=== PATIENT | female | born 1945 | race Caucasian/White ===

== ENCOUNTER 2017-01-01 08:49 | Emergency (ER) | payer MEDICARE ==
[~2017-01-01] VITALS: Ht 157.5 cm; Wt 77.2 kg
[~2017-01-01 08:49] MED LIST: ADULT ASPIRIN E81 MG PO; ALPRAZOLAM0.5 M2 PO; AZITHROMYCIN500 MG OR; BACTRIM DS1 TAB PO; CALCIUM600 MG OR; CELEBREX100 MG OR; CIPROFLOXACIN500 M1 PO; COLCHICINE0.6 MG OR; DARVOCET-N 100100 MG OR; DOCUSATE CAL240 MG; DOCUSATE CAL240 MG PO; DOXYCYC MONO100 M2 PO; EFFEXOR XR150 MG OR; EFFEXOR XR75 MG OR; ENABLEX15 MG OR; FENOFIBRATE200 MG PO; FENTANYL50 MCG/HR TD; FIORICET PO; FLEXERIL OR; FLEXERIL PO; FLEXERIL5 M1 PO; FLEXERIL5 MG PO; FLORASTOR250 M1 PO; FOLIC ACI1 OR; FOLIC ACI1 PO; FOLIC ACID1 MG PO; GABAPENTIN100 MG PO; GABAPENTIN300 M2 PO; GABAPENTIN400 MG PO; HYDROCO/APAP1 T13; HYDROXYCHLOR200 MG PO; KEFLEX500 MG PO; LAMICTAL100 M1 PO; LAMICTAL150 MG PO; LAMICTAL200 M1 PO; LORTAB 1010 MG PO; LORTAB 7.5-3251 TAB PO; LOSARTAN POT50 MG PO; MACRODANTIN100 MG PO; MEDDOSEPAK OR; METHOTREXATE2.5 MG OR; METHOTREXATE2.5 MG PO; METOPROL TAR25 MG PO; MINOCYCLINE100 MG PO; NITROFURANTN100 MG PO; NITROFURANTOIN100 MG PO; OMEPRAZOLE20 MG PO; OXYBUTYNIN5 M1 PO; OXYBUTYNIN5 MG PO; PERCOCET 5/325M1 TAB OR; PHENERGAN12.5 MG/TA PO; PLAQUENIL200 MG OR; PREDNISODT10 OR; PRISTIQ100 MG PO; PROZAC20 M1 PO; PROZAC20 MG PO; RISPERIDONE0.5 MG PO; RISPERIDONE2 MG PO; ROCEPHIN 1 GM1 GM IM; ROCEPHIN 1 GM1 GM IV; ROSUVASTATIN CA10 MG PO; ROZEREM8 MG OR; SEROQUEL25 MG PO; SILVADENE1 % TOP; TENIVAC1 ML IM; TOPROL XL25 M1 OR; TRAZODONE50 MG PO; TRICOR145 MG PO; TYLENOL 500MG TAB PO; ULTRAM ER200 MG OR; ULTRAM50 M1 PO; VANCOMYCIN HCL1 GM IV; VESICARE10 MG OR; VITAMIN D2000 UNIT PO; ZANAFLEX4 MG PO; ZOFRAN4 MG/TAB PO; allo OR; allo PO
[2017-01-01] MEDS ORDERED: METOPROL TAR25 M1 PO (09:03)
[2017-01-01] MEDS ORDERED: HIGH POTENCY I134 MG (09:04)
[2017-01-01 09:48] VITALS: BP 149/78
== END 2017-01-01 09:55 | disposition home or self-care (01) ==
LOC: ED 08:49
DX: S63.642A Sprain of metacarpophalangeal joint of left thumb, initial encounter (principal); I12.9 Hypertensive chronic kidney disease with stage 1 through stage 4 chronic kidney disease, or unspecified chronic kidney disease; N18.3 Chronic kidney disease, stage 3 (moderate); F17.210 Nicotine dependence, cigarettes, uncomplicated; F31.9 Bipolar disorder, unspecified; I25.2 Old myocardial infarction; W01.0XXA Fall on same level from slipping, tripping and stumbling without subsequent striking against object, initial encounter; Y92.009 Unspecified place in unspecified non-institutional (private) residence as the place of occurrence of the external cause

== ENCOUNTER 2018-02-17 03:03 | Emergency (ER) | payer MEDICARE ==
[~2018-02-17] VITALS: Ht 157.5 cm; Wt 72.7 kg
[~2018-02-17 03:03] MED LIST changes: +CIPROFLOXACN500 MG PO; +FLUOXETINE40 MG PO; +HIGH POTENCY I134 MG; +LASIX 20 MG TAB20 MG PO; +LATUDA20 MG PO; +METO25TAB PO; +METOPROL TAR25 M1 PO; +METRONIDAZOL500 MG PO; +MYRBETRIQ25 MG PO; +ROSUVASTATIN CA20 MG
[2018-02-17] MEDS ORDERED: MEDDOSEPAK PO (03:19)
[2018-02-17] MEDS ORDERED: PERCOCET 5/325M1 TAB PO (04:32)
[2018-02-17 05:04] VITALS: BP 140/70
== END 2018-02-17 05:30 | disposition home or self-care (01) ==
LOC: ED 03:03
DX: S30.0XXA Contusion of lower back and pelvis, initial encounter (principal); F31.9 Bipolar disorder, unspecified; I11.9 Hypertensive heart disease without heart failure; F17.210 Nicotine dependence, cigarettes, uncomplicated; W18.30XA Fall on same level, unspecified, initial encounter; Y93.89 Activity, other specified; Y92.009 Unspecified place in unspecified non-institutional (private) residence as the place of occurrence of the external cause

== ENCOUNTER 2018-07-17 07:11 | Emergency (ER) | payer MEDICARE ==
[~2018-07-17] VITALS: Ht 157.5 cm; Wt 62.0 kg
[~2018-07-17 07:11] MED LIST changes: +MEDDOSEPAK PO; +PERCOCET 5/325M1 TAB PO; +TORADOL PO
[2018-07-17 07:42] LABS: HEMATOCRIT 39.6 % (37.0-47.0); IMMATURE GRANULOCYTES 0.5 % (0.0-5.0); MEAN CELL VOLUME 94.1 fL CALC (80.0-100.0); MEAN CORPUSCULAR HGB 30.9 pG CALC (26.0-32.0); MEAN CORPUSCULAR HGB CONC 32.8 g/L CALC (32.0-36.0); NEUT# 4.09 thou/uL (2.00-7.15); RED BLOOD COUNT 4.21 mill/uL (4.20-5.60); RED CELL DISTRI WIDTH 13.6 % (11.5-15.5)
[2018-07-17] MEDS ORDERED: MINOCYCLINE100 MG PO (07:53)
[2018-07-17] MEDS ORDERED: VESICARE5 MG PO (07:53)
[2018-07-17] MEDS ORDERED: OSCAL 500/1 TAB PO (07:54)
[2018-07-17] MEDS ORDERED: DICLOFENAC50 MG PO (08:58)
[2018-07-17] MEDS ORDERED: FLEXERIL PO (08:58)
[2018-07-17 09:15] VITALS: BP 148/69
== END 2018-07-17 09:15 | disposition home or self-care (01) ==
LOC: ED 07:11
PROVIDERS: Emergency Medicine
DX: S16.1XXA Strain of muscle, fascia and tendon at neck level, initial encounter (principal); R51 Headache; M54.2 Cervicalgia; M25.512 Pain in left shoulder; F17.200 Nicotine dependence, unspecified, uncomplicated
CPT/HCPCS: J3370

== ENCOUNTER 2020-12-08 19:47 | Emergency (ER) | payer MEDICARE ==
[~2020-12-08] VITALS: Ht 157.5 cm; Wt 70.0 kg
[~2020-12-08 19:47] MED LIST changes: +DICLOFENAC50 MG PO; +OSCAL 500/1 TAB PO; +VESICARE5 MG PO
[2020-12-08] MEDS ORDERED: NAPROXEN500 MG PO (20:24)
[2020-12-08 20:56] VITALS: BP 158/78
== END 2020-12-08 20:59 | disposition home or self-care (01) ==
LOC: ED 19:47
DX: S80.11XA Contusion of right lower leg, initial encounter (principal); I10 Essential (primary) hypertension; F31.9 Bipolar disorder, unspecified; F17.200 Nicotine dependence, unspecified, uncomplicated; W18.39XA Other fall on same level, initial encounter; Y93.H2 Activity, gardening and landscaping; Y92.007 Garden or yard of unspecified non-institutional (private) residence as the place of occurrence of the external cause

== ENCOUNTER 2021-07-08 16:48 | Emergency (ER) | payer MEDICARE ==
[~2021-07-08] VITALS: Ht 157.5 cm; Wt 72.7 kg
[~2021-07-08 16:48] MED LIST changes: +NAPROXEN500 MG PO
[2021-07-08 17:27] LABS: HEMATOCRIT 38.1 % (37.0-47.0); HEMOGLOBIN 12.3 g/dl (12.0-16.0); IMMATURE GRANULOCYTES 0.2 % (0.0-5.0); MEAN CELL VOLUME 92.7 fL CALC (80.0-100.0); MEAN CORPUSCULAR HGB 29.9 pG CALC (26.0-32.0); MEAN CORPUSCULAR HGB CONC 32.3 g/dL CAL (32.0-36.0); NEUT# 4.2 thou/uL (2.00-7.15); RED BLOOD COUNT 4.11 mill/uL (4.20-5.60); RED CELL DISTRI WIDTH 12.5 % (11.5-15.5)
[2021-07-08 17:43] LABS: ALBUMIN 4.1 g/dL (3.2-5.0); BILIRUBIN, TOTAL 0.4 mg/dL (0.0-1.4); CREATININE 1.6 mg/dL (0.5-1.0); POTASSIUM 4.8 mmol/l (3.5-5.1); TOTAL PROTEIN 7.5 g/dL (6.3-8.2)
[2021-07-08] MEDS ORDERED: NORVASC5 M1 PO (19:49)
[2021-07-08] MEDS ORDERED: LEVAQUIN750 M1 PO (20:30)
[2021-07-08 20:40] VITALS: BP 140/64
== END 2021-07-08 20:40 | disposition home or self-care (01) ==
LOC: ED 16:48
PROVIDERS: Family Medicine
DX: J18.9 Pneumonia, unspecified organism (principal); J44.0 Chronic obstructive pulmonary disease with (acute) lower respiratory infection; I10 Essential (primary) hypertension; F31.9 Bipolar disorder, unspecified; I25.2 Old myocardial infarction; F17.210 Nicotine dependence, cigarettes, uncomplicated

== ENCOUNTER 2022-06-19 05:44 | Emergency (ER) | payer MEDICARE ==
[~2022-06-19] VITALS: Ht 157.5 cm; Wt 70.0 kg
[~2022-06-19 05:44] MED LIST changes: +LEVAQUIN750 M1 PO; -MYRBETRIQ25 MG PO; +MYRBETRIQ50 MG PO; +NORVASC5 M1 PO
[2022-06-19] MEDS ORDERED: CLINDAMYCIN HC150 MG PO (06:24)
[2022-06-19] MEDS ORDERED: OXYBUTYNIN CHLOR5 M1 PO (06:25)
[2022-06-19] MEDS ORDERED: CALTRAT1 PO (06:26)
[2022-06-19] MEDS ORDERED: LATUDA20 MG PO (06:27)
[2022-06-19] MEDS ORDERED: NITROFURANTN100 MG PO (06:28)
[2022-06-19] MEDS ORDERED: DOXYCYCLINE50 M1 (06:29)
[2022-06-19] MEDS ORDERED: PREDNISONE1 MG PO (06:30)
[2022-06-19] MEDS ORDERED: [UNRECOGNIZED DRUG - CODE] XX (06:31)
[2022-06-19] MEDS ORDERED: VISTARIL 50MG C50 M1 PO ×2 (06:32→07:21)
[2022-06-19] MEDS ORDERED: PREDNISONE50 MG PO (07:21)
[2022-06-19] MEDS ORDERED: ALL DAY10 MG PO (07:21)
[2022-06-19 07:30] VITALS: BP 127/58
== END 2022-06-19 07:46 | disposition home or self-care (01) ==
LOC: ED 05:44
DX: L10.0 Pemphigus vulgaris (principal); I11.0 Hypertensive heart disease with heart failure; I50.9 Heart failure, unspecified; J44.9 Chronic obstructive pulmonary disease, unspecified; E78.00 Pure hypercholesterolemia, unspecified; F31.9 Bipolar disorder, unspecified; I25.2 Old myocardial infarction; F17.200 Nicotine dependence, unspecified, uncomplicated; Z99.81 Dependence on supplemental oxygen

== ENCOUNTER 2022-06-28 07:53 | Inpatient (IN) | payer MEDICARE ==
[~2022-06-28] VITALS: Ht 157.5 cm; Wt 66.0 kg
[2022-06-28] VITALS (9 sets, daily range): BP systolic 145–179; BP diastolic 60–87
[~2022-06-28 07:53] MED LIST changes: +ALL DAY10 MG PO; +CALTRAT1 PO; +CLINDAMYCIN HC150 MG PO; +DOXYCYCLINE50 M1; +OXYBUTYNIN CHLOR5 M1 PO; +PREDNISONE1 MG PO; +PREDNISONE50 MG PO; +VISTARIL 50MG C50 M1 PO; +[UNRECOGNIZED DRUG - CODE] XX
--- NOTE | 2022-06-28 08:02 | NUR ---
PATIENT BROUGHT IN VIA EMS IN [facility]. PROVIDER MET BEDSIDE.
[2022-06-28 08:23] LABS: IMMATURE GRANULOCYTES 1.6 % (0.0-5.0); MEAN CORPUSCULAR HGB 27.9 pG CALC (26.0-32.0); NEUT# 14.68 thou/uL (2.00-7.15); RED BLOOD COUNT 3.15 mill/uL (4.20-5.60); RED CELL DISTRI WIDTH 14.9 % (11.5-15.5)
[2022-06-28] MEDS ORDERED: NITROFURANTN100 MG PO (08:27)
[2022-06-28 08:29] LABS: HEMATOCRIT 29.3 % (37.0-47.0); HEMOGLOBIN 8.8 g/dl (12.0-16.0)
[2022-06-28 08:43] LABS: ALBUMIN 3.3 g/dL (3.2-5.0); POTASSIUM 4.8 mmol/l (3.5-5.1)
[2022-06-28 08:48] LABS: BILIRUBIN, TOTAL 0.5 mg/dL (0.0-1.4)
--- NOTE | 2022-06-28 08:56 | NUR ---
PATIENT RESTING QUIETLY. NO NEW CONCERNS. RESPIRATORY EFFORT IMPROVED AFTER NEBULIZER TX.
[2022-06-28 09:56] LABS: URINE BILIRUBIN - DIPSTICK NEGATIVE (NEGATIVE); URINE BLOOD DIPSTICK NEGATIVE (NEGATIVE); URINE COLOR YELLOW; URINE GLUCOSE - DIPSTICK NEGATIVE (NEGATIVE); URINE KETONE NEGATIVE (NEGATIVE); URINE LEUK ESTERASE NEGATIVE (NEGATIVE); URINE PROTEIN - DIPSTICK TRACE mg/dL (NEG-TRACE); URINE SPECIFIC GRAVITY 1.015; URINE UROBILINOGEN - DIPSTICK 0.2 E.U./dL (0.2)
[2022-06-28 09:57] LABS: URINE NITRITE - DIPSTICK NEGATIVE (Negative)
--- NOTE | 2022-06-28 10:23 | NUR ---
BEDSIDE REPORT GIVEN TO CATINA FRIAS ON MED SURG UNIT
--- NOTE | 2022-06-28 12:02 | NUR ---
CALLED IN A PHYSICIAN CONSULT FOR DR SANCHES. I SPOKE WITH HIS ANSWERING SERVICE (JUSTIN) AT 1202 HRS.
--- NOTE | 2022-06-28 15:37 | NUR ---
1015 PT ARRIVED TO FLOOR FROM ER VIA STRETCHER WITH ALL PERSONAL BELONGINGS. PT ALERT AND ORIENTED X4. PT VERY SOB WITH MINIMAL EXERTION. OXYGEN THERAPY @ 2L NC. PT TRANSFERRED TO BED X2 ASST. REPORT RECEIVED FROM ALTAGRACIA MORE AT BEDSIDE. ADMISSION ASSESSMENT COMPLETED. DRESSINGS NOTED TO BLE, DRESSINGS REMOVED TO ASSESS SKIN. WOUNDS TO BLE CLEANED WITH STERILE WATER, DRIED WITH STERILE 4X4, NON ADHESIVE KEFLEX APPLIED AND WRAPPED WITH KERLIX. PT TOLERATED WELL. ALL PERSONAL ITEMS WITHIN REACH. SAFETY PRECAUTIONS ON PLACE.
--- NOTE | 2022-06-28 19:24 | NUR ---
PT RELINQUISHED TO ALTAGRACIA ACEVEDO
--- NOTE | 2022-06-28 19:30 | NUR ---
PT WAS NOTED IN BED FOWLERS. PT REWUESTED TO USE RESTROOM. HELPED PT OUT OF BED, AMBULATED TO RESTROOM WITH CANE AND 1XASSIST. GAIT UNTEASY AND SHAKY. AMBULATED PT BACK INTO BED. ASSESSED PT AND IV SITE. UPON ASSESSMENT PT LUNG SOUNDS RHONCHI IN ALL LOBES O2 SATURATION AT 96%. PT EXHIBITTED FEELING ANXIOUS. IV SITE APPEARS HEALTHY AND INTACT. CALL LIGHT WITHIN REACH.
--- NOTE | 2022-06-28 20:25 | NUR ---
PT BLODD PRESSURE DOCUMENTED 173/70. CALLED DR. CARRASCO IN REGARD TO HYPERTENSION, ANXIETY, AND MED REC. T.O.R.B OF LOSARTAN 50MG PO DAILY. ORDER FAXED TO [facility]. AWAITING ORDER TO ADMINISTER PER EMAR. BEDSIDE COMMODE BROUGHT IN ROOM FOR PT AND EXTENDED TUBING FOR OXYGEN. IV DRESSING CHANGED. SAFETY PRECAUTIONS IN PLACE AND CALL LIGHT WITHIN REACH. WILL FOLLOW UP.
--- NOTE | 2022-06-28 22:15 | NUR ---
PT WAS ADMINISTERED LOSARTAN 50MG AND TRAZADONE 50 MG PER EMAR FOR HYPERTENSION AND ANXIETY. ALL SAFETY MEASURES IN PLACE AND CALL LIGHT WITHIN REACH. WILL CONTINUE TO MONITOR.
[2022-06-29] VITALS (18 sets, daily range): BP systolic 97–196; BP diastolic 39–85
--- NOTE | 2022-06-29 00:07 | NUR ---
PT LAYING IN BED FOWLERS. NASAL CANULA PRESENTS ON PT. NO S/S OF DISTRESS OR DISCOMFORT. SAFETY PRECAUTIONS IN PLACE AND CALL LIGHT WITHIN REACH.
--- NOTE | 2022-06-29 04:10 | NUR ---
PT LAYING HIGH FOWLERS IN BED.PT SLEEPING. LABORED BREATHING WITH NASAL CANULA IN PLACE. NO S/S OF DISTRESS OR PAIN PRESENT AT THIS TIME. SAFETY PRECAUTIONS IN OLACE AND CALL LIGHT WITHIN REACH.
--- NOTE | 2022-06-29 05:02 | NUR ---
PT HAD AUTOMATIC BLOOD PRESSURE READING OF 190/85. RECHECKED PATIENTS BLOOD PRESSURE MANUALLY WITH A READING OF 196/82. AT 0458 I CALLED THE PHYSICIAN ON COMPUTER LAB ASSISTANT, DR. CARRASCO. TOOK ORDER READ BACK OF HYDRALAZINE 10MG IV PUSH Q6HR PRN. ORDER WAS FAXED TO PHARMACY. AWAITING ORDER PER EMAR.
--- NOTE | 2022-06-29 05:24 | NUR ---
PTS WEIGHT ON 06/29 WAS 66 KG STANDING SCALE
--- NOTE | 2022-06-29 05:31 | NUR ---
PATIENT RESTING IN BED- BP-196/82, HR-87, O2 SAT IS 98% WITH O2 VIA NASAL CANNULA AT 2LPM IN PLACE. MEDICATED WITH HYDRALAZINE 10MG IVP VIA LAC IV SITE FOR HTN. SITE IS HEALTHY WITH GOOD BLOOD RETURN. CALL LIGHT IN REACH. WILL CONT TO MONITOR.
--- NOTE | 2022-06-29 06:14 | NUR ---
AT 0557 PT STARTED COMPLAINING OF CHEST PAIN. RN ON SHIFT CURTIS HOOVER WAS NOTIFIED. UPON OBSERVATION OF PT SHE WAS VERY SHAKY, SKIN COLOR A YELLOW, PALE COLOR, AND ANXIOUS WITH GARBLED SPEECH. NASAL CANULI WAS IN PLACE ON PT. I CHECKED PT BLODD PRESSURE MANUALLY WITH A READING OF 162/78, OXYGEN SATURATION OF 95%, AND PULSE OF 99. EKG WAS DONE ON PT REVEALING SINUS TACH RHYTHYM AND LABS WERE DRAWN ON PT. CURTIS HOOVER RN NOTIFIED PHYSICIAN DR. CARRASCO.
[2022-06-29 06:15] LABS: HEMATOCRIT 31.7 % (37.0-47.0); HEMOGLOBIN 9.8 g/dl (12.0-16.0); IMMATURE GRANULOCYTES 1.2 % (0.0-5.0); MEAN CELL VOLUME 90.8 fL CALC (80.0-100.0); MEAN CORPUSCULAR HGB 28.1 pG CALC (26.0-32.0); MEAN CORPUSCULAR HGB CONC 30.9 g/dL CAL (32.0-36.0); NEUT# 23.01 thou/uL (2.00-7.15); RED BLOOD COUNT 3.49 mill/uL (4.20-5.60); RED CELL DISTRI WIDTH 14.7 % (11.5-15.5)
[2022-06-29 06:34] LABS: ALBUMIN 3.6 g/dL (3.2-5.0); BILIRUBIN, TOTAL 0.7 mg/dL (0.0-1.4); CREATININE 2.1 mg/dL (0.5-1.0); MAGNESIUM 1.6 mg/dL (1.6-2.3); POTASSIUM 4.6 mmol/l (3.5-5.1); TOTAL PROTEIN 6.2 g/dL (6.3-8.2)
--- NOTE | 2022-06-29 06:45 | NUR ---
PT NOTED IN BED LAYING FOWLERS. PAIN MEDICATION ADMINISTERED TO PT PER THE EMAR. PT STILL COMPLAINING OF PAIN AT THIS TIME. COMFORT MEASURES IN PLACE FOR PT. SAFETY PRECAUTIONS IN PLACE. CALL LIGHT WITHIN REACH.
--- NOTE | 2022-06-29 08:43 | NUR ---
PT ANXIOUS IN ROOM. STATING " I WANT TO " CALMING CUES GIVEN. PT REMAINS ANXIOUS. LABORED BREATHING. VITAL SIGNS: BP158/69 HR: 95 SPO2: 97 WITH O2 VIA NC @2L RR:25 MD NOTIFIED/AWARE.
--- NOTE | 2022-06-29 09:39 | NUR ---
PRELIMINARY BC SHOWS GRAM (+) COCCI IN 3/3 VIALS. PATIENT RECEIVING VANCOMYCIN 750MG IV Q36H. WILL CONTINUE TO FOLLOW PT.
--- NOTE | 2022-06-29 09:45 | NUR ---
S: DASHA GARDINER is a 76 F who presents with PNEUMONIA AND BACTEREMIA. She has a history of HTN, HYPERLIPIDEMA, HEART DISEASE, AND COPD. All medications in patient's chart were reviewed. O: VS: BP 158/69mmHg, P 101 bpm, RR 22 bpm,T 97.7 F W 66 kg, HT 62inches, Scr= 2.1 mg/dL ,CrCl= 20.9 ml/min A: Preliminary blood cultures shows GRAM POSITIVE COCCI in 2/2 sets. P: Patient is on ceftriaxone 1 gram IV Q24H AND azithromycin 500mg IV Q24H. Vancomycin ordered for pharmacy to dose. Start Vancomycin 750mg IV Q36H. Due to timing of vancomycin dosing, Vancomycin trough will drawn before the 3rd dose on 07/02/22 @ 0830. Vancomycin goal trough is between 15-20 mcg/ml. Pharmacy will follow and or advise on antibiotics use as needed.
--- NOTE | 2022-06-29 20:02 | NUR ---
AT 1945 ER CALLED NOTING PT WAS TACHY. UPON REEVIEW OF TELEMENTRY MONITOR AND PULSE OX PLACED ON PT THEY WERE TACHY BETWEEN 110 AND 130. METOPROLOL SUCCINATE 12.5 MG DAILY WAS ADMINISTERED. WILL FOLLOW UP WITH PT AND CONTINUE MONITORING HR.
--- NOTE | 2022-06-29 20:45 | NUR ---
PT HEART RATE IS STILL ELEVATED BETWEEN 110-120. PT RESPIRATORY RATE IS 36 AND O2 SAT 95%. PT STILL EXHIBITING SIGNS OF HIGH ANXIETY. PT SHOWING SIGNS OF CONFUSION. SKIN COMPLEXION PALE GRAYISH YELLOW. TRAZODONE HCL 50 MG WERE ADMINISTERED TO PT PER EMAR TO AID IN ANXIETY. CURTIS HOOVER RN NOTIFIED ON STATUS OF PT. SAFETY PRECAUTIONS IN PLACE AND CALL LIGHT WITHIN REACH.
--- NOTE | 2022-06-29 21:15 | NUR ---
PT HR SUSTAINING IN THE 120'S. RESPIRATORY RATE ELEVATED, O2 SATURATION AT 95%. PT STILL EXHIBITING SIGNS OF ANXIETY. LORAZEPAM 1MG ADMINISTERED TO PT FOR ANXIETY PER EMAR. CONTINUING TO MONITOR PT. CALL LIGHT WITHIN REACH AND SAFETY PRECAUTIONS IN PLACE.
--- NOTE | 2022-06-29 21:55 | NUR ---
PATIENT SITTING UP IN BED WITH O2 VIA NASAL CANNULA IN PLACE AT 2LPM WITH O2 SAT OF 95%. RESPS ARE RAPID AND SHALLOW. TELE MONITOR CONT TO BE SUSTAINED ST. CALL PLACED TO DR. MUIR WITH UPDATE ON PATIENT CONDITION. NEW ORDERS TO TRANSFER TO ICU ON BIPAP. BRITTANI NICHOLSG SUP NOTIFIEDAND AWAITING ROOM ASSIGNMENT. SPOKE WITH CRISTOBAL LEDESMA) IN [place] WITH UPDATE. WILL CONT TO MONITOR.
--- NOTE | 2022-06-29 23:09 | NUR ---
Patient refused Bipap, Dr. Hannah and RN aware. Tolerating NC well at this time.
--- NOTE | 2022-06-29 23:22 | NUR ---
Recieved pt from [facility] floor, pt refused BIB-pap provider aware, tylenol given for temp of 99.8f
[2022-06-30] VITALS (89 sets, daily range): BP systolic 99–196; BP diastolic 55–139
--- NOTE | 2022-06-30 01:00 | NUR ---
PATIENT ON AFIB RVR .DR. MUIR MADE AWARE ORDER NOTED.
--- NOTE | 2022-06-30 03:20 | NUR ---
PATIENT RESTING COMFORTABLY AT THIS TIME. DENIES ANY PAIN OR DISCOMFORT
[2022-06-30 06:03] LABS: HEMATOCRIT 31.1 % (37.0-47.0); HEMOGLOBIN 9.3 g/dl (12.0-16.0); IMMATURE GRANULOCYTES 1.1 % (0.0-5.0); MEAN CELL VOLUME 93.1 fL CALC (80.0-100.0); MEAN CORPUSCULAR HGB 27.8 pG CALC (26.0-32.0); MEAN CORPUSCULAR HGB CONC 29.9 g/dL CAL (32.0-36.0); NEUT# 18.16 thou/uL (2.00-7.15); RED BLOOD COUNT 3.34 mill/uL (4.20-5.60); RED CELL DISTRI WIDTH 14.6 % (11.5-15.5)
[2022-06-30 06:16] LABS: ALBUMIN 3.5 g/dL (3.2-5.0); BILIRUBIN, TOTAL 0.6 mg/dL (0.0-1.4); TOTAL PROTEIN 6.4 g/dL (6.3-8.2)
[2022-06-30 06:18] LABS: POTASSIUM 4.8 mmol/l (3.5-5.1)
[2022-06-30 06:45] LABS: ALBUMIN 3.5 g/dL (3.2-5.0); MAGNESIUM 1.5 mg/dL (1.6-2.3); POTASSIUM 4.8 mmol/l (3.5-5.1)
--- NOTE | 2022-06-30 14:15 | NUR ---
PT RESTING QUIETLY ON STRETCHER, CARDIOLOGY HERE FOR FOLLOW UP OF PT. PT STATES LIVES BY HERSELF AT HOME AND USUALLY DRIVES HERSELF AND USES WALKER. STATES IF SHE NEEDS REHAB DOES NOT WANT TO GO TO A REHAB CENTER WANTS HOME HEALTH AT HOME
--- NOTE | 2022-06-30 15:10 | NUR ---
02 2L NC 94%SAT
--- NOTE | 2022-06-30 16:22 | NUR ---
Consult received for retacrit dosing. Retacrit contraindicated at this time due to uncontrolled BP and SBP>140mmHg. Will review 07/01.
--- NOTE | 2022-06-30 16:54 | NUR ---
PT RESTING QUIETLY ON STRETCHER, VITAL SIGNS UP AND DOWN, AT THIS TIME IS IN ST WITH RATE IN MID 90'S.
--- NOTE | 2022-06-30 21:47 | NUR ---
RECIEVED PT FROM ICU. PT TRANSFERED BY BED WEARING 2L NC. PT IS ALERT AND ORIENTATED X3. FACIAL STRUCTURE SYMMETRICAL. UPPER EXTREMITIES STRONG. BREATHING LABORED WITH O2 2L VIA NC. ACTIVE BOWEL SOUNDS, PT REPORTED LAST BM WAS 06/29/22. IV SITES FLUSHED, NO PAIN WHEN FLUSHING. PT DENIES PAIN OR DISCOMFORT. ALL SAFETY PRECAUTIONS IN PLACE AT THIS TIME.
--- NOTE | 2022-06-30 23:49 | NUR ---
2130 transport pt to [facility], pt is hemodinamic stable to be transfer , report given. incoming rn will continue plan of care.
[2022-07-01] VITALS: BP 152/59
--- NOTE | 2022-07-01 00:23 | NUR ---
PT HAS RECIEVED BREATHING TREATMENT AND BREATHING HAS IMPROVED. PT DENIES WANTING LIGHTS OFF. REINFORCED CALL LIGHT. IV SITES FLUSHED. WILL CONTINUE TO MONITOR PT. TELE IN PLACE. ALL SAFETY PRECAUTIONS IN PLACE AT THIS TIME
--- NOTE | 2022-07-01 03:43 | NUR ---
PT AWAKE, REQUESTED WATER. BREATHING IS NON LABORED WITH O2 IN PLACE. PT DENIES PAIN OR DISCOMFORT. ALERT AND ORIENTATED X3. IV SITE PATENT. DENIES ANY FURTHER NEEDS AT THIS TIME. ALL SAFETY PRECAUTIONS IN PLACE AT THIS TIME
[2022-07-01 04:43] VITALS: BP 157/72
[2022-07-01 05:59] LABS: HEMATOCRIT 31.5 % (37.0-47.0); HEMOGLOBIN 9.6 g/dl (12.0-16.0); MEAN CELL VOLUME 92.6 fL CALC (80.0-100.0); MEAN CORPUSCULAR HGB 28.2 pG CALC (26.0-32.0); MEAN CORPUSCULAR HGB CONC 30.5 g/dL CAL (32.0-36.0); RED BLOOD COUNT 3.4 mill/uL (4.20-5.60); RED CELL DISTRI WIDTH 14.2 % (11.5-15.5)
[2022-07-01 06:11] LABS: CREATININE 1.8 mg/dL (0.5-1.0); POTASSIUM 4.7 mmol/l (3.5-5.1)
[2022-07-01 06:17] LABS: MAGNESIUM 1.9 mg/dL (1.6-2.3)
--- NOTE | 2022-07-01 07:00 | NUR ---
RECEIVE REPORT FROM DEMETRI ORTEZ.
[2022-07-01 07:04] VITALS: BP 146/80
--- NOTE | 2022-07-01 10:23 | NUR ---
O2 SAT ON 3L NC IS 98%
[2022-07-01 10:43] VITALS: BP 158/70
--- NOTE | 2022-07-01 12:44 | NUR ---
PT RESTING IN BED. STATES NO PAIN. TELE MONITOR IN PLACE. CONTINOUS MONITORING FALL/SAFTEY PRECAUTION IN PLACE, CALL LIGHT WITHIN REACH.
[2022-07-01 14:47] VITALS: BP 158/67
--- NOTE | 2022-07-01 15:59 | NUR ---
PT RESTING IN BED WITH EYES CLOSED. NO S/S OF DISTRESS NOTED. ALL PERSONAL BELONGINGS WITHIN REACH. SAFETY PRECUATIONS IN PLACE.
[2022-07-01 19:05] VITALS: BP 145/66
[2022-07-02] VITALS (8 sets, daily range): BP systolic 125–146; BP diastolic 60–69
[2022-07-02 05:51] LABS: HEMATOCRIT 32.6 % (37.0-47.0); HEMOGLOBIN 9.9 g/dl (12.0-16.0); MEAN CELL VOLUME 92.6 fL CALC (80.0-100.0); MEAN CORPUSCULAR HGB 28.1 pG CALC (26.0-32.0); MEAN CORPUSCULAR HGB CONC 30.4 g/dL CAL (32.0-36.0); NEUT# 21.06 thou/uL (2.00-7.15); RED BLOOD COUNT 3.52 mill/uL (4.20-5.60); RED CELL DISTRI WIDTH 14.3 % (11.5-15.5)
[2022-07-02 06:46] LABS: ALBUMIN 3.4 g/dL (3.2-5.0); BILIRUBIN, TOTAL 0.5 mg/dL (0.0-1.4); CREATININE 1.6 mg/dL (0.5-1.0); MAGNESIUM 1.8 mg/dL (1.6-2.3); POTASSIUM 4.2 mmol/l (3.5-5.1); TOTAL PROTEIN 5.8 g/dL (6.3-8.2)
--- NOTE | 2022-07-02 07:30 | NUR ---
SHIFT CHANGE REPORT, PT AWAKE ALERT AND ORIENTED RESTING IN BED, BREATHING SHALLOW AND PURSED LIP, O2 SAT ON 3L = 98%, TELE MONITOR IN PLACE, CALL ESCALONA IN REACH AND BED LOCKED IN LOWEST POSITION.
--- NOTE | 2022-07-02 10:57 | NUR ---
Pharmacist called to notify Vanco trough in appropiate range to proceed with administration of 0900 dose.
--- NOTE | 2022-07-02 12:00 | NUR ---
RESTING IN BED IN SUPINE POSITION, CONDITION UNCHANGED
--- NOTE | 2022-07-02 16:00 | NUR ---
REPOSITIONED AND LINNEN CHANGED, NO NEW COMPLAINS.
--- NOTE | 2022-07-02 22:08 | NUR ---
PATIENT RESTING IN BED. ALERT AND ORIENTED, HARD OF HEARING. ASSESSMENT COMPLETE. PATIENT WITH AUDIBLE INSPIRATORY WHEEZING, PURSED LIP BREATHING NOTED, SATURATION 98% ON 3/L NC. DENIES PAIN AT THIS TIME. CALL LIGHT WITHIN REACH.
[2022-07-03] VITALS (7 sets, daily range): BP systolic 107–175; BP diastolic 57–85
[2022-07-03 05:22] LABS: HEMATOCRIT 35.6 % (37.0-47.0); HEMOGLOBIN 10.7 g/dl (12.0-16.0); MEAN CELL VOLUME 91.5 fL CALC (80.0-100.0); MEAN CORPUSCULAR HGB 27.5 pG CALC (26.0-32.0); MEAN CORPUSCULAR HGB CONC 30.1 g/dL CAL (32.0-36.0); RED BLOOD COUNT 3.89 mill/uL (4.20-5.60); RED CELL DISTRI WIDTH 14.1 % (11.5-15.5)
[2022-07-03 05:46] LABS: ALBUMIN 3.5 g/dL (3.2-5.0); CREATININE 1.5 mg/dL (0.5-1.0); MAGNESIUM 1.9 mg/dL (1.6-2.3); POTASSIUM 4.3 mmol/l (3.5-5.1)
--- NOTE | 2022-07-03 05:51 | NUR ---
PATIENT RESTING QUIETLY EYES CLOSED. APRESOLINE 10MG IVP GIVEN FOR BP 175/85
--- NOTE | 2022-07-03 08:00 | NUR ---
Report received from welder 2nd shift - pt stable - no concerns at this time - call light in reach
--- NOTE | 2022-07-03 14:34 | NUR ---
O2 SAT ON 3L IS 99%
--- NOTE | 2022-07-03 16:05 | NUR ---
Pt sleeping in bed - wearing o2 and satting >90 - denies any pain - PIV flushes and is intact - call light in reach will monitor
--- NOTE | 2022-07-03 21:28 | NUR ---
PT RESTING IN BED, NO SIGNS OF DISTRESS NOTED, PURSED LIPPED BREATHING NOTED. PT DENIES SOB AT THIS TIME. 02 3L NC, PT ALERT AND ORIENTED X3, NO EDEMA. NOTED PT HAS DRY SKIN AND SCRATCHING, BARRIER CREAM APPLIED FOR MOISTURE. NOTED LOTS OF SCABBED AREAS TO SKIN, DRESSINGS TO BLE, CDI, PT HAS MANY SCABS TO BLE. PT MEDICATED PER MAR, ASSESSMENT COMPLETED, BED ALARM FOR SAFETY, CALL LIGHT IN REACH,CONTINUE TO MONITOR.
--- NOTE | 2022-07-04 | NUR ---
PT RESTING IN BED WITH EYES CLOSED, NO SIGNS OF DISTRESS NOTED, RESP EVEN AND UNLABORED. CALL LIGHT IN REACH,CONTINUE TO MONITOR.
--- NOTE | 2022-07-04 04:00 | NUR ---
PT RESTING IN BED WITH EYES CLOSED, NO SIGNS OF DISTRESS NOTED, RESP EVEN AND UNLABORED. CALL LIGHT IN REACH,CONTINUE TO MONITOR.
[2022-07-04 04:33] VITALS: BP 124/57
[2022-07-04 05:48] LABS: HEMATOCRIT 36.3 % (37.0-47.0); HEMOGLOBIN 11.1 g/dl (12.0-16.0); IMMATURE GRANULOCYTES 0.6 % (0.0-5.0); MEAN CELL VOLUME 91.7 fL CALC (80.0-100.0); MEAN CORPUSCULAR HGB CONC 30.6 g/dL CAL (32.0-36.0); NEUT# 24.23 thou/uL (2.00-7.15); RED BLOOD COUNT 3.96 mill/uL (4.20-5.60)
[2022-07-04 06:21] LABS: ALBUMIN 3.4 g/dL (3.2-5.0); BILIRUBIN, TOTAL 0.5 mg/dL (0.0-1.4); CREATININE 1.7 mg/dL (0.5-1.0); POTASSIUM 4.3 mmol/l (3.5-5.1); TOTAL PROTEIN 5.7 g/dL (6.3-8.2)
[2022-07-04 06:46] VITALS: BP 148/64
--- NOTE | 2022-07-04 08:00 | NUR ---
PT RESTING IN BED UPON ENTERING ROOM. ASSESSMENT COMPLETED. O2 IN PLACE VIA NC @3L. TELE MONITOR IN PLACE, CONTINOUS MONITORING PER ED. UPDATED PT IN CURRENT PLAN OF CARE. FALL/SAFTEY PRECAUTION IN PLACE, CALL LIGHT WITHIN REACH.
[2022-07-04 10:16] VITALS: BP 136/65
--- NOTE | 2022-07-04 11:42 | NUR ---
S: DASHA GARDINER is a 76 F who presents with pneumonia and bacteremia. She has a history of HTN, hyperlipidemia, heart disease, and COPD. All medications in patient's chart were reviewed. O: Trough level was 15 ug/mL on 07/04/22 @1030 for 1100 dose. VS: BP 135/65 mmHg, P 72 bpm, RR 20 bpm,T 97.4 F W 66 kg, HT 62 inches, Scr= 1.7 mg/dL, CrCl= 25.1 ml/min A: Blood culture shows staphylococcus haemolyticus which is sensitive to vancomycin. P: Patient is on vancomycin 750 mg IV q24h. Vancomycin ordered for pharmacy to dose. Start Vancomycin 750mg IV Q24H. Vancomycin trough is drawn before the dose on 07/06/22 @1030. Vancomycin goal trough is between 15-20 mcg/ml. Pharmacy will follow and or advise on antibiotics use as needed.
--- NOTE | 2022-07-04 12:00 | NUR ---
PT EATING LUNCH. NO DISTRESS NOTED. STATES NO PAIN. FALL/SAFTEY PRECAUTIO CORNELIUS PLACE, CALL LIGHT WITHIN REACH.
--- NOTE | 2022-07-04 13:16 | NUR ---
O2 SAT ON 2L IS 95%
[2022-07-04 15:00] VITALS: BP 113/66
--- NOTE | 2022-07-04 16:00 | NUR ---
PT ALERT IN BED. STATES NO PAIN. TELE MONITOR IN PLACE, CONTINOUS MONITORING PER ED. NO DISTRESS NOTED. FALL/SAFETY PRECAUTION IN PLACE, CALL LIGHT WITTHIN REACH
[2022-07-04 19:17] VITALS: BP 100/51
--- NOTE | 2022-07-04 21:10 | NUR ---
PT RESTING IN BED, NO SIGNS OF DISTRESS NOTED, RESP EVEN AND UNLABORED. PT ALERT AND ORIENTED X3, NO EDEMA NOTED. NOTED MULTIPLE SCABS TO SKIN, DRESSINGS TO BLE CDI. DISCUSSED POC, PT ON 2LNC O2. ASSESSMENT COMPLETED, CALL LIGHT IN REACH, BED ALARM FOR SAFETY, CONTINUE TO MONITOR.
--- NOTE | 2022-07-05 | NUR ---
PT RESTING IN BED WITH EYES CLOSED, NO SIGNS OF DISTRESS NOTED, RESP EVEN AND UNLABORED. CALL LIGHT IN REACH,CONTINUE TO MONITOR.
[2022-07-05 00:08] VITALS: BP 106/63
[2022-07-05 04:04] VITALS: BP 121/66
--- NOTE | 2022-07-05 05:08 | NUR ---
lizzie lift sling soiled. pt weighed by bed weight.
[2022-07-05 05:34] LABS: HEMATOCRIT 35.3 % (37.0-47.0); HEMOGLOBIN 10.9 g/dl (12.0-16.0); IMMATURE GRANULOCYTES 1.5 % (0.0-5.0); MEAN CELL VOLUME 90.5 fL CALC (80.0-100.0); MEAN CORPUSCULAR HGB 27.9 pG CALC (26.0-32.0); MEAN CORPUSCULAR HGB CONC 30.9 g/dL CAL (32.0-36.0); NEUT# 24.75 thou/uL (2.00-7.15); RED BLOOD COUNT 3.9 mill/uL (4.20-5.60); RED CELL DISTRI WIDTH 14.1 % (11.5-15.5)
[2022-07-05 05:37] LABS: ALBUMIN 3.2 g/dL (3.2-5.0); CREATININE 1.4 mg/dL (0.5-1.0)
--- NOTE | 2022-07-05 05:44 | NUR ---
PT RESTING IN BED, NO SIGNS OF DISTRESS NOTED, RESP EVEN AND UNLABORED. PT MEDICATED PER MAR, CALL LIGHT IN REACH,CONTINUE TO MONITOR.
[2022-07-05 06:18] VITALS: BP 135/73
--- NOTE | 2022-07-05 07:00 | NUR ---
RECEIVE REPORT FROM MARTA FRIAS.
--- NOTE | 2022-07-05 08:00 | NUR ---
PATIENT ALERT AND ORIENTED X3. RESTING STABLE IN BED AT THIS TIME. ASSESSMENTE HEAD-TO TOE COMPLETE. PATIENT IS EDUCATED ABOUD MEDICATIONS, PAIN MANAGEMENT AND NURSING PLAN FOR TODAY. PATIENT REFER UNSERSTAND. SAFETY AND FALL PRECAUTIONS IN PLACE. CALL LIGHT WITHIN IN REACH. BEFORE HE LEFT OR THE
[2022-07-05 10:37] VITALS: BP 128/69
--- NOTE | 2022-07-05 12:17 | NUR ---
PT RESTING IN BED. STATES NO PAIN. TELE MONITOR IN PLACE. CONTINOUS MONITORING FALL/SAFTEY PRECAUTION IN PLACE, CALL LIGHT WITHIN REACH.
[2022-07-05 16:06] VITALS: BP 103/59
[2022-07-05 18:54] VITALS: BP 136/70
--- NOTE | 2022-07-05 19:58 | NUR ---
Patient assisted back to bed from chair and given stan care. Barrier cream applied and new purwick provided.
--- NOTE | 2022-07-05 20:00 | NUR ---
PT SITTING UP IN THE CHAIR. PT WAS A/OX3. PT ASSESSMENT COMPLETED AND IV SITE ASSESSED. IV SITE APPEARS HEALTHY WITH BLOOD RETURN. PT RESPIRATIONS WERE 26 AND LUNG SOUNDS RHONCHI AND COARSE IN ALL LOBES. PT O2 SATS 96%, NASAL CANNULA IN PLACE WITH 2L ON. 3 DRESSINGS NOTED ON PT. ONE ON EACH OSORIO AND ON R KNEE. PT DENIES ANY PAIN OR DISCOMFORT AT THIS TIME. CALL LIGHT WITHIN REACH AND SAFETY PRECAUTIONS IN PLACE. WILL CONTINUE TO MONITOR.
[2022-07-06] VITALS (9 sets, daily range): BP systolic 95–171; BP diastolic 56–82
--- NOTE | 2022-07-06 00:08 | NUR ---
PT SLEEPING IN BED. NASAL CANNULA IN PLACE AND O2 SATS >90. NO S/S OF PAIN OR DISCOMFORT. CALL LIGHT WITHIN REACH AND SAFETY PRECAUTIONS IN PLACE.
--- NOTE | 2022-07-06 00:50 | NUR ---
PATIENT RESTING IN BED-CIPRO HUNG ORDERED VIA [facility] SITE. SITE REMAINS HEALTHY AT THIS TIME. MEDICATED FOR SLEEP WITH SONATA 5MG PO. TELE MONITOR IN PLACE. DIAZ CATH PATENT AND DRAINING LEATHA URINE. CALL LIGHT IN REACH. WILL CONT TO MONITOR.
[2022-07-06 07:15] LABS: HEMATOCRIT 37.6 % (37.0-47.0); HEMOGLOBIN 11.5 g/dl (12.0-16.0); MEAN CELL VOLUME 90.4 fL CALC (80.0-100.0); MEAN CORPUSCULAR HGB 27.6 pG CALC (26.0-32.0); MEAN CORPUSCULAR HGB CONC 30.6 g/dL CAL (32.0-36.0); RED BLOOD COUNT 4.16 mill/uL (4.20-5.60); RED CELL DISTRI WIDTH 14.2 % (11.5-15.5)
[2022-07-06 07:35] LABS: CREATININE 1.5 mg/dL (0.5-1.0); MAGNESIUM 2.1 mg/dL (1.6-2.3); POTASSIUM 4.4 mmol/l (3.5-5.1)
--- NOTE | 2022-07-06 08:13 | NUR ---
PT RESTING IN BED. ASSESSMENT CONPLETED. TELE MONITOR INPLACE, CONTINOUS MONITORING PER MD. TELE BOX#12 UPDATED PT IN CURRENT PLAN OF CARE. PT INDICATED UNDERSTANDING. FALL/SAFTEY PRECAUTION IN PLACE. CALL LIGHT WITHIN REACH.
--- NOTE | 2022-07-06 12:00 | NUR ---
PT RESTING IN RECLINER. STATES NO PAIN. NO DISTRESS NOTED. FALL/SAFTEY PRECAUTION IN PLACE, CALL LIGHT WITHIN REACH
--- NOTE | 2022-07-06 12:50 | NUR ---
S: DASHA GARDINER is a 76 F who presents with Bacteremia and Pneumonia. She has a history of hypertension and COPD. All medications in patient's chart were reviewed. O: VS: BP 109/62mmHg, P 80bpm, RR 17bpm, T 96.6F W 63.6kg, HT 62inches, Scr=1.5mg/dL, CrCl= 28.0ml/min A: Final blood cultures from 06/28/22 shows staph. Haemolyticus in 3/4 vials. Subesequent blood cultures from 07/05/22 are pending. P: Vancomycin ordered for pharmacy to dose. Start Vancomycin 750mg IV Q24H. Vancomycin trough is drawn before the 4th dose on 07/09/2022 @ 1030. Vancomycin goal trough is between 15-20 mcg/ml. Pharmacy will follow and or advise on antibiotics use as needed.
--- NOTE | 2022-07-06 17:06 | NUR ---
PT SLEEPING IN BED. BREATHING EVEN AND UNLABORED. NO DISTRESS NOTED. FALL/SAFTEY PRECAUTION IN PLACE, CALL LIGHT WITHIN REACH.
--- NOTE | 2022-07-06 20:00 | NUR ---
PT NOTED IN BED LAYING FOWLERS. PT HAS NASAL CANNULA IN PLACE WITH 2L OXYGEN. PT A/OX3 AND DENIES ANY PAIN OR DISCOMFORT AT THIS TIME. PT BLOOD PRESSURE TAKEN WITH MACHINE WAS 96/59. RE ASSESSED PT BLOOD PRESSURE MANUALLY WITH READING OF 100/61. ENCOURAGED PT TO KEEP LEGS ELEVATED IN BED. IV SITE APPEARS HEALTHY WITH BLOOD RETURN AND ON SALINE LOCK. SAFETY PRECAUTIONS IN PLACE AND CALL LIGHT WITHIN REACH. WILL CONTINUE TO MONITOR PT.
--- NOTE | 2022-07-06 23:51 | NUR ---
PT LAYING IN BED EYES CLOSED, FOWLERS, WITH LIGHT ON. NASAL CANNULA IN PLACE. PT BLOOD PRESSURE 95/58 HOWEVER NO S/S OF DISTRESS OR DISCOMOFRT. CALL LIGHT WITHIN REACH AND SAFETY PRECAUTIONS IN PLACE.
[2022-07-07] VITALS (12 sets, daily range): BP systolic 82–137; BP diastolic 49–68
[2022-07-07 06:03] LABS: HEMATOCRIT 32.5 % (37.0-47.0); IMMATURE GRANULOCYTES 3.4 % (0.0-5.0); MEAN CELL VOLUME 90.5 fL CALC (80.0-100.0); MEAN CORPUSCULAR HGB 27.9 pG CALC (26.0-32.0); MEAN CORPUSCULAR HGB CONC 30.8 g/dL CAL (32.0-36.0); PLATELET COUNT 214 thou/uL (130-400); RED BLOOD COUNT 3.59 mill/uL (4.20-5.60); RED CELL DISTRI WIDTH 14.4 % (11.5-15.5)
[2022-07-07 06:07] LABS: MANUAL DIFFERENTIAL YES
[2022-07-07 06:12] LABS: ALBUMIN 3.1 g/dL (3.2-5.0); BILIRUBIN, TOTAL 0.3 mg/dL (0.0-1.4); CREATININE 1.5 mg/dL (0.5-1.0); MAGNESIUM 2.2 mg/dL (1.6-2.3); POTASSIUM 4.1 mmol/l (3.5-5.1); TOTAL PROTEIN 5.3 g/dL (6.3-8.2)
--- NOTE | 2022-07-07 06:30 | NUR ---
RECIEVED CALL FROM LAB FOR CRITICAL. PT WHITE COUNT [id number] AND BUN 91. CALLED AND NOTIFIED. NO NEW ORDERS GIVEN AT THIS TIME.
[2022-07-07 06:45] LABS: ANISOCYTOSIS FEW; NUCLEATED RED BLOOD CELL 1 /100WBC (0-1); POIKILOCYTOSIS FEW
[2022-07-07 06:46] LABS: PLATELET ESTIMATE NORMAL
[2022-07-07 06:52] LABS: BAND 0 % (0-8); IMMATURE CELLS 0 %; PLASMA CELL 0
--- NOTE | 2022-07-07 08:00 | NUR ---
PT RESTING IN BED WITH O2 IN PLACE VIA NC @2L. STATES NO PAIN. TELE MONITOR IN PLACE, CONTINOUS MONITORING PER ED. ASSESSMENT COMPLETED. REORIENATTED PT TO ROOM AND CALL ESCALONA SYSTEM. ENCOURAGED PT TO USE CALL LIGHT. FALL/SAFTEY PRECAUTION IN PLACE. CALL LIGHT WITHIN REACH
--- NOTE | 2022-07-07 08:36 | NUR ---
O2 SAT ON 2L IS 98%
--- NOTE | 2022-07-07 11:24 | NUR ---
infectious disease doctor at bedside via [employer]
--- NOTE | 2022-07-07 11:25 | NUR ---
COMPLETED AN INFECTIOUS DISEASE CONSULT WITH DR COOK VIA THE [facility].
--- NOTE | 2022-07-07 15:30 | NUR ---
PT STATES FEELING SOB RT AT BEDSIDE FOR PRN DUONEB TREATMENT.
--- NOTE | 2022-07-07 15:53 | NUR ---
CHEST XRAY AT BEDSIDE
--- NOTE | 2022-07-07 16:00 | NUR ---
NEW IV ESTABLISHED 18G RAC. BY DAYSHIFT MED SURGE AYA NURSE
--- NOTE | 2022-07-07 16:30 | NUR ---
PT STATES DUONEB TREATMENT EASED BREATHING. VITALS OBTAINED TEMP: 97.0 HR: 77 BP: 105/58 RR: 20 FALL/SAFTEY PRECAUTIONS IN PLACE, CALL LIGHT WITHIN REACH.
[2022-07-07 18:01] LABS: URINE BILIRUBIN - DIPSTICK NEGATIVE (NEGATIVE); URINE BLOOD DIPSTICK TRACE-INTACT (NEGATIVE); URINE COLOR YELLOW; URINE GLUCOSE - DIPSTICK NEGATIVE (NEGATIVE); URINE KETONE NEGATIVE (NEGATIVE); URINE LEUK ESTERASE TRACE (NEGATIVE); URINE PH 5.5 (4.5-8.0); URINE PROTEIN - DIPSTICK NEGATIVE (NEG-TRACE); URINE SPECIFIC GRAVITY 1.025; URINE UROBILINOGEN - DIPSTICK 0.2 E.U./dL (0.2)
[2022-07-07 18:03] LABS: URINE NITRITE - DIPSTICK NEGATIVE (Negative)
--- NOTE | 2022-07-07 20:00 | NUR ---
PT NOTED LAYING IN BED SUPINE NASAL CANNULA IN PLACE ON 2L. IV SITE NOW 18 RAC APPEARS HEALTHY AND FLUSHES, ON SALINE LOCK. PT IS A/0X3. PT DENIES ANY PAIN OR DISCOMFORT. PT ASSESSMENT COMPLETED. LUNG SOUNDS STILL COARSE AND RHONCI IN ALL LOBES. PHYSICIAN AWARE. SAFETY PRECAUTIONS IN PLACE AND CALL LIGHT WITHIN REACH.
[2022-07-08] VITALS (9 sets, daily range): BP systolic 101–132; BP diastolic 48–61
--- NOTE | 2022-07-08 00:15 | NUR ---
PT SLEEPING IN BED. NASAL CANNULA IN PLACE AND NO S/S OF PAIN OR DISCOMFORT. CALL LIGHT WITHIN REACH AND SAFETY PRECAUTIONS IN PLACE.
--- NOTE | 2022-07-08 04:00 | NUR ---
PT LAYING IN BED WITH EYES CLOSED. NASAL CANULA IN PLACE WITH 2L O2. PT SHOWS NO S/S OF DISTRESS OR DISCOMFORT. CALL LIGHT WITHIN REACH AND SAFETY PRECAUTIONS IN PLACE.
--- NOTE | 2022-07-08 06:01 | NUR ---
Pt was asked to get weight taken, pt refused.
[2022-07-08 06:02] LABS: HEMATOCRIT 30.8 % (37.0-47.0); HEMOGLOBIN 9.5 g/dl (12.0-16.0); IMMATURE GRANULOCYTES 2.7 % (0.0-5.0); MEAN CELL VOLUME 90.1 fL CALC (80.0-100.0); MEAN CORPUSCULAR HGB 27.8 pG CALC (26.0-32.0); MEAN CORPUSCULAR HGB CONC 30.8 g/dL CAL (32.0-36.0); NEUT# 23.54 thou/uL (2.00-7.15); RED BLOOD COUNT 3.42 mill/uL (4.20-5.60); RED CELL DISTRI WIDTH 14.5 % (11.5-15.5)
[2022-07-08 06:26] LABS: ALBUMIN 3.2 g/dL (3.2-5.0); ALKALINE PHOSPHATASE 50 u/l (38-126); BILIRUBIN, TOTAL 0.4 mg/dL (0.0-1.4); CARBON DIOXIDE 27 mmol/l (22-30); CHLORIDE 103 mmol/l (95-108); CREATININE 1.4 mg/dL (0.5-1.0); GFR FOR AFR.AMER. 44 ML/MIN (>=60 (CALC)); GFR OTHER RACES 37 ML/MIN (>=60 (CALC)); MAGNESIUM 2.4 mg/dL (1.6-2.3); POTASSIUM 4.3 mmol/l (3.5-5.1); SGOT/AST 46 u/l (9-36); TOTAL PROTEIN 5.3 g/dL (6.3-8.2)
[2022-07-08 06:35] LABS: BUN 89 mg/dL (8-23); BUN/CREATININE RATIO 64 (12-20 (CALC)); SODIUM 125 mmol/l (137-146)
--- NOTE | 2022-07-08 06:40 | NUR ---
RECIEVED RESULTS OF BUN 89. NEELIMA VICENTE INFORMED. DR QUILES CALLED
--- NOTE | 2022-07-08 07:00 | NUR ---
REPORT FROM ARACELI ORTEZ. ASSUMED PT CARE.
--- NOTE | 2022-07-08 09:08 | NUR ---
O2 SAT 99% ON 2L NC
--- NOTE | 2022-07-08 10:31 | NUR ---
PT SITTING UP AT BEDSIDE. NO APPARENT DISTRESS NOTED. PURSE-LIPPED BREATHING NOTED. 99% ON 2L/M VIA NC. PT BECOMES SOB WITH TALKING OR EXACERBATION. PT DENIES ANY PAIN OR DISCOMFORT. CALL LIGHT WITHIN REACH. WILL CONTINUE TO MONITOR.
--- NOTE | 2022-07-08 14:33 | NUR ---
ASSISTED PT TO BSC X2 PERSON ASSIST. PT TOLERATED WELL. PT VOIDED WITH A SMALL BM NOTED. PERICARE PROVIDED, WITH BARRIER CREAM APPLIED. PT BACK INTO BED AND REPOSITIONED. CALL LIGHT WITHIN REACH. WILL CONTINUE TO MONITOR.
--- NOTE | 2022-07-08 20:19 | NUR ---
Pt in bed watching tv. A&O x 4. Lung sounds coarse and labored breathing. Tylenol given for pain later re-assess pt states pain came down to a 1. Cream applied to pt's bottom. Bed alarm on, call light given to pt. Will continue to monitor.
[2022-07-09] VITALS (8 sets, daily range): BP systolic 91–131; BP diastolic 44–58
--- NOTE | 2022-07-09 | NUR ---
Pt was observed resting in bed with eyes closed. Pt does not appear to be in no pain nor any acute sign of distress. Water at bedside, call light in reach, and bed alarm on. Will continue to monitor.
--- NOTE | 2022-07-09 00:15 | NUR ---
Pt in bed resting with eyes closed. Pt does not appear to be in no distress at this time. Pt denied pain at this time. Call light in reach, bed alarm is on. Will continue to monitor.
--- NOTE | 2022-07-09 04:26 | NUR ---
Pt refused when asked to get weighted, pt refused when asked twice.
[2022-07-09 06:10] LABS: HEMATOCRIT 28.1 % (37.0-47.0); HEMOGLOBIN 8.7 g/dl (12.0-16.0); IMMATURE GRANULOCYTES 4.4 % (0.0-5.0); MEAN CELL VOLUME 90.9 fL CALC (80.0-100.0); MEAN CORPUSCULAR HGB 28.2 pG CALC (26.0-32.0); NEUT# 19.85 thou/uL (2.00-7.15); RED BLOOD COUNT 3.09 mill/uL (4.20-5.60); RED CELL DISTRI WIDTH 14.8 % (11.5-15.5)
[2022-07-09 06:12] LABS: ALBUMIN 2.7 g/dL (3.2-5.0); CREATININE 1.4 mg/dL (0.5-1.0); MAGNESIUM 2.5 mg/dL (1.6-2.3); POTASSIUM 4.3 mmol/l (3.5-5.1)
--- NOTE | 2022-07-09 06:44 | NUR ---
[id number] PHYSICIAN AWARE OF TRENDING DOWN RESULT.
--- NOTE | 2022-07-09 07:35 | NUR ---
GOT REPORT FROM DRILL SETUP OPERATOR NURSE AT BEDSIDE. PATIENT IS SLEEPING. WOKE PATIENT AND INFORMED PATINT THAT I WILL BE NURSE TAKING OVER. PATIENT DENIES ANY DISTRESS OR DISCOMFORT. FALL PRECAUTIONS IN PLACE. CALL LIGHT AND BEDSIDE TABLE WITHIN REACH. ADVISED TO CALL IF PATIENT NEEDED ANYTHING. PATIENT VERBALIZED UNDERSTANDING.
--- NOTE | 2022-07-09 12:00 | NUR ---
PATIENT SITTING UP IN CHAIR RESTING. PATIENT STATES THAT SHE IS A LITTLE SHORT OF BREATH RIGHT NOW AND I LISTENED TO LUNGS AND PATIENT HAS A LITTLE WHEEZE IN RIGHT LUNG. CALL RT FOR BREATHING TREATMENT. PATIENT MADE AWARE AND AGREED WITH PLAN. ADVISED TO CALL IF NEEDING ANYTHING.
--- NOTE | 2022-07-09 12:16 | NUR ---
S: DASHA GARDINER is a 76 F who presents with Pneumonia and Bacteremia. She has a history of heart disease and COPD. All medications in patient's chart were reviewed. O: VS: BP 116/57mmHg, P 66bpm, RR 20bpm, T 98.1F W 46.2kg, HT 62 inches, Scr= 1.4mg/dL ,CrCl= 24.9ml/min A: Blood culture show S. haemolyticus which is sensitive to vancomycin. P: Vancomycin ordered for pharmacy to dose. Vancomycin dose 750mg for 07/09/22 was held and new dose will be initiated 07/10/2022 Start Vancomycin 500 mg IV Q24H. Vancomycin trough is drawn before the 4th dose on 07/13/2022 @ 0830. Vancomycin goal trough is between 15-20 mcg/ml. Pharmacy will follow and or advise on antibiotics use as needed.
--- NOTE | 2022-07-09 13:59 | NUR ---
Pt ID verified. Attempted to provide OT intervention X2. Pt refused.
--- NOTE | 2022-07-09 14:30 | NUR ---
Attempted treatment this pm, HOTEL ASSISTANT MANAGER reported she had recently returned to bed. Pt presently sleeping. She has justed refused OT, no treatment given at this time.
--- NOTE | 2022-07-09 16:00 | NUR ---
PATIENT IS IN BED RESTING. NOT NEEDING ANYTHING RIGHT NOW. ADVISED TO CALL IF SHE IS IN NEED.
--- NOTE | 2022-07-09 20:29 | NUR ---
During shift assessment pt was not compliant to bilateral legs dressing. tylenol given for pain. pt is currently sitting up in bed eating night snacks. call light in reach, bed alarm on. Denies any needs at this time.
[2022-07-10] VITALS (8 sets, daily range): BP systolic 101–133; BP diastolic 52–58
--- NOTE | 2022-07-10 00:10 | NUR ---
pt asssisted to the [facility]. denies pain. no change from previous assessment. call light in reach and bed alarm on, will continue to monitor.
--- NOTE | 2022-07-10 04:36 | NUR ---
Pt was asked to get weight, Pt refused, and the nurse was notified.
--- NOTE | 2022-07-10 04:42 | NUR ---
Pt refused morning daily weight check. Denies any unmet needs at this time. Call light in reach and bed alarm on. Will continue to monitor .
[2022-07-10 05:49] LABS: HEMOGLOBIN 8.3 g/dl (12.0-16.0); MEAN CELL VOLUME 92.5 fL CALC (80.0-100.0); MEAN CORPUSCULAR HGB 28.4 pG CALC (26.0-32.0); MEAN CORPUSCULAR HGB CONC 30.7 g/dL CAL (32.0-36.0); NEUT# 18.27 thou/uL (2.00-7.15); RED BLOOD COUNT 2.92 mill/uL (4.20-5.60); RED CELL DISTRI WIDTH 15.2 % (11.5-15.5)
[2022-07-10 06:08] LABS: ALBUMIN 2.8 g/dL (3.2-5.0); CREATININE 1.4 mg/dL (0.5-1.0); MAGNESIUM 2.4 mg/dL (1.6-2.3)
--- NOTE | 2022-07-10 06:19 | NUR ---
RECEIVED PATIENT CRITICAL BUN RESULT 81 AT [id number] FROM , PATIENT NURSE MADE AWARE.
[2022-07-10 06:28] LABS: POTASSIUM 4.8 mmol/l (3.5-5.1)
--- NOTE | 2022-07-10 06:51 | NUR ---
Pt's AM BUN is 81, provider already aware of trend.
--- NOTE | 2022-07-10 08:00 | NUR ---
RC'D REPORT FROM NIGHTSHIFT, PT IN BED TRYING TO SLEEP. PT ON 3 L NC, PT TAKES SHORT BREATHS BUT DENIES ANY SOB. PT IS EXTREMELY HARD OF HEARING. PULSES ARE STRONG AND PALPABLE. LUNG SOUNDS ARE A LITTLE CRACKLE SOUNDING. PT IS NOT IN ANY PAIN. PT ABLE TO AMBULATE WITH ONE PERSON ASSIST. BED IN LOWEST POSITION, CALL LIGHT WITHIN REACH
--- NOTE | 2022-07-10 12:14 | NUR ---
pt is sitting in bedside recliner, no other complaints
--- NOTE | 2022-07-10 16:03 | NUR ---
pt in bed sleeping, report given to jeannette
--- NOTE | 2022-07-10 19:35 | NUR ---
RECIEVED REPORT FROM DAYSHIFT NURSE. PT IS A/OX2. NASAL CANNULA IN PLACE WITH 3L O2, SHOWING SIGNS OF LABORED BREATHING. PT O2 SATS AT 99%. ASSESSMENT COMPLATED ON PT. WHEEZING PRESENT IN LOWER LUNGS BILATERALLY. SINGLE PORT PICC LINE NOTED IN R UPPER ARM. 18G IV SITE ALSO PRESENT IN RAC. PT DENIES ANY PAIN AT THIS TIME. CALL LIGHT WITHIN REACH AND SAFETY PRECAUTIONS IN PLACE.
[2022-07-11] VITALS (9 sets, daily range): BP systolic 95–110; BP diastolic 39–56
--- NOTE | 2022-07-11 00:10 | NUR ---
PT LAYING IN BED FOWLERS, SLEEPING. NASAL CANNULA IN PLACE ON 3L. PT SHOWS NO S/S OF DISTRESS OR DISCOMFORT. CALL LIGHT WITHIN REACH AND SAFETY PRECAUTIONS IN PLACE.
--- NOTE | 2022-07-11 04:42 | NUR ---
PT LAYING IN BED ON RIGHT SIDE. LABS DRAWN FROM PICC LINE ON RT BRACHIAL VEIN PER HEPARIN PROTOCOL. OBSERVED PT DRESSINGS ON LEB. ENCOURAGED PT TO ALLOW TO CHANGE DRESSINGS. PT AGREED. WILL FOLLOW UP ON WOUND ASSESSMENT AND DRESSING.
--- NOTE | 2022-07-11 05:02 | NUR ---
Pt was asked to get weighted, pt refused twice when asked, and the nurse was notified.
--- NOTE | 2022-07-11 05:16 | NUR ---
DRESSING CHANGE COMPLETED ON BLE. WOUNDS ARE OPEN, SEROSANGUINEOUS AND PURULENT DRAINAGE PRESENT. NO ODOR DETECTED AT THIS TIME. CLEANED WOUNDS WITH NORMAL SALINE AND PAT RY. COVERED WITH ADAPTICK FOLLOWED BY TELFA AND WRAPPED IN KERLEX. DRESSINGS DATED AND SIGNED.
[2022-07-11 05:25] LABS: ALBUMIN 2.8 g/dL (3.2-5.0); CREATININE 1.6 mg/dL (0.5-1.0); POTASSIUM 4.8 mmol/l (3.5-5.1)
--- NOTE | 2022-07-11 08:00 | NUR ---
GOT REPORT FROM FOOD SERVICE ORDER CLERK NURSE. PATIENT ASSESSED. AOX4. PATIENT HAS FALL PRECAUTIONS IN PLACE. CALL LIGHT AND BED SIDE TABLE WITH IN REACH. ADVISED TO CALL IF NEEDING ANYTHING.
--- NOTE | 2022-07-11 12:00 | NUR ---
PATIENT IS SITTING UP IN BED EATING. NO SXS OF DISTRESS. NO CONCERNS OR QUESTIONS FROM PATIENT AT THIS TIME . ADVISED TO CALL IF NEEDING ANYTHING. PATIENT VERBALIZED UNDERSTANDING.
[2022-07-11 12:39] LABS: HEMATOCRIT 27.6 % (37.0-47.0); HEMOGLOBIN 8.1 g/dl (12.0-16.0); IMMATURE GRANULOCYTES 3.8 % (0.0-5.0); MEAN CELL VOLUME 94.2 fL CALC (80.0-100.0); MEAN CORPUSCULAR HGB 27.6 pG CALC (26.0-32.0); MEAN CORPUSCULAR HGB CONC 29.3 g/dL CAL (32.0-36.0); NEUT# 18.74 thou/uL (2.00-7.15); RED BLOOD COUNT 2.93 mill/uL (4.20-5.60); RED CELL DISTRI WIDTH 15.8 % (11.5-15.5)
--- NOTE | 2022-07-11 19:40 | NUR ---
PT NOTED IN BED LAYING SUPINE WITH NASAL CANNULA IN PLACE ON 3L. PT BLOOD PRESSURE WAS TAKEN WITH MACHINE WITH A READING OF 95/52. RECHECKED PT BLOOD PRESSURE MANUALLY WITH RESULT OF 96/50. PT RESPIRATIONS >20 BUT O2 SATS ARE >90. PT DENIES ANY PAIN AT THIS TIME BUT STATES FEELING ANXIOUS. ENCOURAGED THERAPUTIC COMMUNICATION WITH PT TO HELP RELIEVE ANXIETY. PT ASSESSMENT COMPLATED AND PICC LINE NOTED ON RT UPPER BRACHIAL. WHEEZING AND COARSE HEARD BILATERALLY IN LOWER LOBES. PHYSICIAN ALREADY AWARE. WILL FOLLW UP WITH CAREPLAN AND CONTINUE MONITORING PT. CALL LIGHT WITHIN REACH AND SAFETY PRECAUTIONS IN PLACE.
--- NOTE | 2022-07-11 23:32 | NUR ---
PT LAYING IN BED SLEEPING. NASAL CANNULA IN PLACE. NO S/S OF DISTRESS. SAFETY PRECAUTIONS IN PLACE AND CALL LIGHT WITHIN REACH.
[2022-07-12] VITALS (9 sets, daily range): BP systolic 101–140; BP diastolic 45–64
--- NOTE | 2022-07-12 05:45 | NUR ---
Pt refused daily weight when asked this morning. Nurse was notified.
[2022-07-12 05:52] LABS: HEMATOCRIT 24.3 % (37.0-47.0); HEMOGLOBIN 7.3 g/dl (12.0-16.0); IMMATURE GRANULOCYTES 3.1 % (0.0-5.0); MEAN CELL VOLUME 94.2 fL CALC (80.0-100.0); MEAN CORPUSCULAR HGB 28.3 pG CALC (26.0-32.0); NEUT# 18.19 thou/uL (2.00-7.15); RED BLOOD COUNT 2.58 mill/uL (4.20-5.60); RED CELL DISTRI WIDTH 16.3 % (11.5-15.5)
[2022-07-12 06:04] LABS: ALBUMIN 2.7 g/dL (3.2-5.0); CREATININE 1.5 mg/dL (0.5-1.0); POTASSIUM 4.6 mmol/l (3.5-5.1); TOTAL PROTEIN 4.5 g/dL (6.3-8.2)
[2022-07-12 06:05] LABS: BILIRUBIN, TOTAL 0.6 mg/dL (0.0-1.4)
--- NOTE | 2022-07-12 08:00 | NUR ---
PT IS SITTING UP IN BED, NC @ 3L. PT IS SLEEPING EYES CLOSED, PT RESPONDS TO VERBAL STIMULI AND IS ABLE TO FOLLOW COMMANDS, MAKE HER NEEDS KNOWN, A&OX3. PT HAS NO C/O PAIN. PT HAD BEEN NOTATED TO BECOME SOB WITH ANY MOVEMENT. PT RECOVERS QUICKLY. PT HAS CALL LIGHT NEAR AND IS ABLE TO MAKE HER NEEDS KNOWN. PT IS IN FALL PRECAUTIONS AND REQUIRES ASSISTANCE TO GET OOB. WILL CONTINUE TO MONITOR.
--- NOTE | 2022-07-12 11:21 | NUR ---
PT IS OOB INTO CHAIR, PT HAS NC ACTIVE. PT HAS BEEN ASSISTED WITH 1 PERSON, PT REPORTEDLY HAS SOB. PT HAS CALL LIGHT NEAR.
--- NOTE | 2022-07-12 13:00 | NUR ---
PT HAS BEEN TRASNFERRED BACK INTO BED. PT HAS WEAK GAIT, PT HAS CALL LIGHT NEAR.
--- NOTE | 2022-07-12 17:30 | NUR ---
PT IS SLEEPING, NAD, PT HAS NO CANGE TO ASSESSMENT. PT HAS CALL LIGHT NEAR AND WILL MAKE HER NEEDS KNOWN, WILL CONTINUE TO MONITOR.
--- NOTE | 2022-07-12 19:30 | NUR ---
RECIEVED BEDSIDE REPORT FROM DAYSHIFT NURSE. PT NOTED LAYING IN BED FOWLERS WITH NASAL CANNULA IN PLACE ON 3L O2. PT IS A/OX3. PT DENIES ANY PAIN OR DISCOMFORT AT THIS TIME. REINFORCED CALL LIGHT USE AND SAFETY PRECAUTIONS. WILL CONTINUE TO MONITOR.
[2022-07-13] VITALS (7 sets, daily range): BP systolic 100–132; BP diastolic 39–62
--- NOTE | 2022-07-13 00:09 | NUR ---
PT NOTED LAYING IN BED SLEEPING. NO S/S OF DISTRESS. NASAL CANNULA IN PLACE. CALL LIGHT WITHIN REACH AND SAFETY PRECAUTIONS IN PLACE.
--- NOTE | 2022-07-13 04:20 | NUR ---
PT LAYING IN BED SUPINE WITH NASAL CANNULA IN PLACE ON 3L O2. PT DENIES ANY PAIN OR DISCOMFORT AT THIS TIME. LABS DRAWN THROUGH PICC LINE ON RT BRACHIAL PER PROTOCOL. CALL LIGHT WITHIN REACH AND SAFETY PRECAUTIONS IN PLACE.
[2022-07-13 05:12] LABS: HEMATOCRIT 23.8 % (37.0-47.0); HEMOGLOBIN 7.1 g/dl (12.0-16.0); MEAN CORPUSCULAR HGB 28.6 pG CALC (26.0-32.0); MEAN CORPUSCULAR HGB CONC 29.8 g/dL CAL (32.0-36.0); RED BLOOD COUNT 2.48 mill/uL (4.20-5.60); RED CELL DISTRI WIDTH 16.7 % (11.5-15.5)
[2022-07-13 05:32] LABS: ALBUMIN 2.8 g/dL (3.2-5.0); CREATININE 1.6 mg/dL (0.5-1.0); MAGNESIUM 2.2 mg/dL (1.6-2.3); POTASSIUM 4.6 mmol/l (3.5-5.1)
--- NOTE | 2022-07-13 08:00 | NUR ---
PT IS AWAKE AND REQUESTING TO VOID, PT HAS BEEN ASSISTED X1 TO BSC. PT HAS GAIT STEADY TO STAND AND PIVOT, PT NOTATED TO QUICKLY BECOME SOB. PT HAS 3LNC IN PLACE, PT STATES SHE IS FEELING OK, PT HAS HAD BM IN BRIEF, SHIPPING AND RECEIVING SPECIALIST NOW AT BEDSIDE TO BATHE PT. PT IS FOLLOWING COMMANDS AND ANSWERED ORIENTATION QUESTIONS APPROPRIATELY. PT IS ON FALL PRECAUTIONS AND HAS CALL LIGHT NEAR AND WILL CALL. ALL NEEDS HAVE BEEN ADDRESSED.
--- NOTE | 2022-07-13 12:00 | NUR ---
PT HAS BEEN ASSISTED TO SITTING UP IN BED, HOB ELEVATED. PT HAS BEEN ASSISTED WITH SETTING UP WITH MEAL. PT HAS NO COMPLAINTS AT THIS TIME. PT HAS CALL LIGHT NEAR.
--- NOTE | 2022-07-13 13:44 | NUR ---
BEGAN BLOOD TRANSFUSION. PT AWARE OF POC. RN AT BEDSIDE MONITORING.
--- NOTE | 2022-07-13 13:45 | NUR ---
Pt observed to be sleeping soundly upon entering the room. Clinician attempted to awaken pt. Pt opened her eyes briefly, but did not respond when asked to participate in OT intervention. OT asked X2. Pt resting comfortably with call russ within reach.
--- NOTE | 2022-07-13 13:53 | NUR ---
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 O: VS: BP 123/59, P 73, RR 22, T 97.8 W 46.21 kg, HT 62 in, Scr=1.6, CrCl= 21.8 ml/min Vancomycin trough 07/13 @0845 = 18 A: Vancomycin trough is within therapeutic range. P: Patient is on vancomycin 500 mg IV q24h. Vancomycin ordered for pharmacy to dose. Continue Vancomycin 500 mg IV Q24H. Vancomycin trough is drawn before the dose on 07/16/22@0830. Vancomycin goal trough is between 15-20 mcg/ml. Pharmacy will follow and or advise on antibiotics use as needed.
--- NOTE | 2022-07-13 19:30 | NUR ---
RECEIVED REPORT FROM DAYSSCFT NURSE. PT LAYING FOWLERS IN BED WITH NASAL CANNULA IN PLACE ON 3L O2. PT ASSESSMENT COMPLETED AND "PEA SIZED" OPEN WOUND NOTED ON COCCYX. PHOTO OBTAINED AND DOCUMENTED IN PT CHART. RN Merlene HINDS NOTIFIED. BANDAGE PUT ON WOUND. PICC LINE OF RT BRACHIAL ASSESSED AND APPEARS HEALTHY, ON HEPARIN LOCK. PT DENIES ANY PAIN OR DISCOMFORT. AMBULATED TO BSC WITH MINIMAL ASSISTANCE. PT SHOWED NO SIGNS OF SOB. PT AMBULATED BACK INTO BED. CALL LIGHT WITHIN REACH AND SAFETY PRECAUTIONS IN PLACE.
[2022-07-14] VITALS (10 sets, daily range): BP systolic 110–158; BP diastolic 50–64
--- NOTE | 2022-07-14 00:54 | NUR ---
pt laying in bed fowlers. nasal canula in place and no s/s of distress. call light within reach and safety precautions in place.
--- NOTE | 2022-07-14 04:12 | NUR ---
PT NOTED IN BED LAYING ON RIGHT SIDE. LABS DRAWN FROM PICC LINE AND FLUSHED WITH HERPARIN PER PROTOCOL. [place] BLOOD RETURN. NASAL CANNULA IN PLACE AND PT DENIES ANY PAIN AT THIS TIME. CALL LIGHT WITHIN REACH AND SAFETY PRECAUTIONS IN PLACE.
[2022-07-14 05:34] LABS: ALBUMIN 2.8 g/dL (3.2-5.0); CREATININE 1.5 mg/dL (0.5-1.0); POTASSIUM 4.5 mmol/l (3.5-5.1)
[2022-07-14 06:52] LABS: CREATININE 1.4 mg/dL (0.5-1.0); POTASSIUM 4.5 mmol/l (3.5-5.1)
[2022-07-14 07:26] LABS: HEMATOCRIT 28.7 % (37.0-47.0); MEAN CELL VOLUME 90.8 fL CALC (80.0-100.0); MEAN CORPUSCULAR HGB 29.1 pG CALC (26.0-32.0); MEAN CORPUSCULAR HGB CONC 32.1 g/dL CAL (32.0-36.0); RED BLOOD COUNT 3.16 mill/uL (4.20-5.60); RED CELL DISTRI WIDTH 17.4 % (11.5-15.5)
--- NOTE | 2022-07-14 07:26 | NUR ---
PT RESTING IN LOW FOWLERS POSITION. PT ASSESSMENT AND VS COMPLETED. HEART RHYTHM ON TELE RESPITATIONS ON 3L NC. PT PICC LINE NOTED. PT DENIES ADDITIONAL NEEDS AT THE TIME ALL SAFETY PRECAUTIONS IN PLACE WITH CALL LIGHT IN REACH.
[2022-07-14 07:28] LABS: HEMOGLOBIN 9.2 g/dl (12.0-16.0)
--- NOTE | 2022-07-14 16:00 | NUR ---
PT RESTING LOW FOWLERS POSITION WITH 3L NC . PT DENIES ADDITIONAL NEEDS AT THE TIME ALL SAFETY PRECAUTIONS IN PLACE.
[2022-07-15 04:06] VITALS: BP 164/68
--- NOTE | 2022-07-15 05:46 | NUR ---
PT IN BED WITH EYES CLOSED. NO S.S OF DISTRESS/DISCOMFORT. ABLE TO MAKE NEEDS KNOWN. RESPIRATION EVEN AND NON LABORED. PT DECLINED WEIGHT THIS AM. EDUCATED PT ON REASON FOR WEIGHT AND CONTINUES TO DECLINE. CALL LIGHT WITHIN REACH AND BED IN LOLW POSITION. WILL CONTINUE TO OBSERVE
[2022-07-15 06:25] VITALS: BP 159/76
--- NOTE | 2022-07-15 08:00 | NUR ---
GOT REPORT FROM INSURANCE VERIFICATION CLERK NURSE. PATIENT ASSESSED. AOX4, IS [place]. PATIENT IS SITTING UP IN THE CHAIR WATCHING TV AND EATING BF. FALL PRECAUTIONS IN PLACE. BEDSIDE TABLE AND CALL LIGHT WITH IN REACH OF PATIENT AND ADVISED HER TO CALL IF SHE NEEDS ANYTHING. PATIENT VERBALIZED UNDERSTANDING.
--- NOTE | 2022-07-15 09:52 | NUR ---
O2 SAT ON 2L NC 99%
[2022-07-15] MEDS ORDERED: VISTARIL 50MG C50 M1 PO (10:07)
[2022-07-15] MEDS ORDERED: PREDNISONE20 MG PO (10:07)
[2022-07-15 10:47] VITALS: BP 140/60
[2022-07-15] MEDS ORDERED: VIBRAMYCIN100 M2 PO (11:41)
--- NOTE | 2022-07-15 13:34 | NUR ---
Discharge instructions given. Patient verbalizes understanding of same. Discharged in stable condition via Wheelchair to [facility] with *Other. All belongings sent with pt.
== END 2022-07-15 13:28 | DRG 193 ==
LOC: ED 07:53 → ED-I 09:10 → ED 09:19 → MS2 09:20 → ICU 06-29 22:28 → MS2 06-30 22:35
PROVIDERS: Family Medicine; Internal Medicine; Internal Medicine Nephrology; Nurse Practitioner Family; ADMIT Internal Medicine; ATTEND Internal Medicine
PROC: 02HV33Z Insertion of Infusion Device into Superior Vena Cava, Percutaneous Approach (ICD-10-PCS; principal; 2022-07-09)
PROC: B518ZZA Fluoroscopy of Superior Vena Cava, Guidance (ICD-10-PCS; 2022-07-09)
PROC: 30243N1 Transfusion of Nonautologous Red Blood Cells into Central Vein, Percutaneous Approach (ICD-10-PCS; 2022-07-13)
DX: J18.9 Pneumonia, unspecified organism (principal); I50.33 Acute on chronic diastolic (congestive) heart failure; J96.21 Acute and chronic respiratory failure with hypoxia; I13.0 Hypertensive heart and chronic kidney disease with heart failure and stage 1 through stage 4 chronic kidney disease, or unspecified chronic kidney disease; J44.0 Chronic obstructive pulmonary disease with (acute) lower respiratory infection; N18.4 Chronic kidney disease, stage 4 (severe); L12.0 Bullous pemphigoid; J44.1 Chronic obstructive pulmonary disease with (acute) exacerbation; R78.81 Bacteremia; N17.9 Acute kidney failure, unspecified; I08.0 Rheumatic disorders of both mitral and aortic valves; D72.823 Leukemoid reaction; I48.0 Paroxysmal atrial fibrillation; E83.42 Hypomagnesemia; I27.20 Pulmonary hypertension, unspecified; D63.1 Anemia in chronic kidney disease; R19.5 Other fecal abnormalities; F31.9 Bipolar disorder, unspecified; E78.00 Pure hypercholesterolemia, unspecified; I25.2 Old myocardial infarction; G40.909 Epilepsy, unspecified, not intractable, without status epilepticus; F17.200 Nicotine dependence, unspecified, uncomplicated; Z99.81 Dependence on supplemental oxygen; Z86.14 Personal history of Methicillin resistant Staphylococcus aureus infection; Z79.52 Long term (current) use of systemic steroids; Z20.822 Contact with and (suspected) exposure to COVID-19
CPT/HCPCS: J1160; J1756; J2060; J3370; J3475; P9016; Q5106 EC; Q9967